=== PATIENT | female | born 1985 | race Caucasian/White ===

== ENCOUNTER 2024-02-28 23:38 | Emergency (ER) | payer SELFPAY ==
[~2024-02-28] VITALS: Ht 167.6 cm; Wt 113.6 kg
[~2024-02-28 23:38] MED LIST: AMBIEN 5MG TABLE5 MG PO; EFFEXOR XR75 MG/CAP PO; ESTARYLLA 35 MC1 TAB PO; LYRICA 75MG CAP75 MG PO; MAG-OX 400400 MG/TAB PO; PHENERGAN 25 TA25 MG PO; SEROQUEL50 MG PO; SOMA 350MG350 MG/TAB PO; SYNTHROID 0.0.025 MG PO; VITAMIN B11000 MCG/M IM; XANAX XR2 M1 PO
[2024-02-28 23:41] VITALS: TEMP 98
[2024-02-29 00:32] LABS: ALANINE AMINOTRANSFERASE 16 U/L (0-55); ALBUMIN 3.6 g/dL (3.5-5.0); ALKALINE PHOSPHATASE 101 U/L (40-150); ANION GAP 11 mmol/L (7-16); AST,SGOT 18 U/L (5-34); BILIRUBIN,TOTAL 0.2 mg/dL (0.2-1.2); BLOOD UREA NITROGEN 9 mg/dL (7-19); CALCIUM 9.4 mg/dL (8.4-10.2); CHLORIDE 107 mEq/L (98-107); CREATININE, serum 0.84 mg/dL (0.57-1.11); GLUCOSE 99 mg/dL (70-99); POTASSIUM 3.7 mEq/L (3.5-4.5); SODIUM 141 mEq/L (136-145); TOTAL PROTEIN 6.8 g/dl (6.2-8.1)
[2024-02-29 00:39] LABS: BASO # 0.1 K/mm3 (0.0-0.2); BASO % 0.9 % (0.0-2.0); EOS # 0.2 K/mm3 (0.0-0.7); EOS % 2.6 % (0.0-4.0); GRAN # 4.8 K/mm3 (1.4-6.5); GRAN % 58.6 % (42.2-75.2); HEMOGLOBIN 11.8 g/dl (12.5-16.0); LYMPH # 2.6 K/mm3 (1.2-3.4); LYMPH % 31.3 % (20.0-51.0); MEAN CELL VOLUME 86 fl (80.0-100.0); MEAN CORPUSCULAR HEMOGLOBIN 28 pg (27-31); MEAN CORPUSCULAR HGB CONC 33 g/dl (33.0-37.0); MEAN PLATELET VOLUME 10.8 fl (7.4-10.4); MONO # 0.5 K/mm3 (0.1-0.6); MONO % 6.4 % (1.7-9.3); RED BLOOD COUNT 4.19 M/mm3 (4.10-5.30); REDCELL DISTRIBUTION WIDTH-CV 14.2 % (11.5-14.5); TROPONIN-I < 0.010 ng/mL (0.00-0.033)
[2024-02-29 00:53] LABS: PLATELET COUNT 261 K/mm3 (130-400)
[2024-02-29 01:14] VITALS: BP 107/72; PULSE 73
== END 2024-02-29 01:14 | disposition home or self-care (01) ==
LOC: COL.ER 23:38
PROVIDERS: Nurse Practitioner Primary Care
DX: F41.0 Panic disorder [episodic paroxysmal anxiety] (principal); R42 Dizziness and giddiness